=== PATIENT | female | born 1975 | race Two or more races ===

== ENCOUNTER 2017-05-29 17:45 | Emergency (ER) | payer OTHER ==
[2017-05-29 17:56] VITALS: BP 112/69; PULSE 78; RESP 16; TEMP 97.5; O2SAT 97
--- NOTE | 2017-05-29 18:55 | EDPHY ---
HPI/HX/ROS/PE/MDM Narrative: CHIEF COMPLAINT: Dysuria, hematuria HPI: This patient is a [place]anian-speaking 41 year old female complaining of lower abdominal pain and dysuria. These symptoms began a few days ago. She has had urinary frequency and urgency. She has also noted hematuria. She endorses nausea but no vomiting. She denies history of UTI in the past. No fever, back pain or flank pain, diarrhea, or other associated symptoms. 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 REVIEW OF SYSTEMS: Aside from elements discussed in the HPI, a comprehensive 10-point review of systems was reviewed and is negative. PMH: Denies. SOCIAL HISTORY: [place]anian-speaking. Family member at bedside. Lives in [place]. PHYSICAL EXAM: General:Patient is alert, in no acute distress. ENT:Eyes are normal to inspection. ENT inspection normal. Neck: Normal inspection. Full range of motion. Respiratory:No respiratory distress. Breath sounds normal bilaterally. Cardiovascular: Regular rate and rhythm. Strong peripheral pulses. Normal cap refill. Abdomen: Suprapubic tenderness. There are no peritoneal signs. There are normal bowel sounds. Back: Normal to inspection. No tenderness to palpation. No CVA tenderness. Skin: Normal color. No rash. Warm and dry. Extremities: Normal appearance. Full range of motion. Neuro: Oriented x3. Normal motor function. Normal sensory function. ED Course: 41 y/o female presents with dysuria, hematuria, suprapubic pain. Symptoms consistent with UTI. No flank pain. The patient is afebrile and non-toxic appearing. Plan for UA. UA positive for UTI, hematuria. Plan to d/c home in good condition with Macrobid and Pyridium. The first doses of these will be administered here in the emergency department. Follow up and return precautions discussed. The patient is comfortable with this plan. - Data Points Laboratory Results: 05/29/17 05/29/17 17:58 17:58 Urine Color RED Urine Appearance MODERATELY TURBID Urine pH 6.0 (5.0-7.5) Ur Specific [place] 1.013 (1.002-1.030) Urine Protein 2+ H (NEGATIVE) Urine Ketones NEGATIVE (NEGATIVE) Urine Blood 3+ H (NEGATIVE) Urine Nitrate NEGATIVE (NEGATIVE) Urine Bilirubin NEGATIVE (NEGATIVE) Urine Urobilinogen NEGATIVE EU EU (0.2-1.0) Ur Leukocyte Esterase 2+ H (NEGATIVE) Urine RBC 50-182 /hpf H /hpf (0-3) Urine WBC 50-182 /hpf H /hpf (0-3) Ur Epithelial Cells TRACE /lpf /lpf (NONE-1+) Urine Mucus TRACE /lpf /lpf (NONE-1+) Urine Glucose NEGATIVE (NEGATIVE) Urine Test NEGATIVE Medications Given: Discontinued Medications Nitrofurantoin Macrocrystals (Macrobid) 100 mg PO EDNOW ONE PRN Reason: Protocol Stop: 05/29/17 19:05 Last Admin: 05/29/17 19:20 Dose: 100 mg Phenazopyridine HCl (Pyridium) 200 mg PO EDNOW ONE Stop: 05/29/17 19:05 Last Admin: 05/29/17 19:20 Dose: 200 mg General Time Seen by Provider: 05/29/17 18:54 Initial Vital Signs: Initial Vital Signs Temperature (C) 36.4 C 05/29/17 17:53 Heart Rate 78 05/29/17 17:53 Respiratory Rate 16 05/29/17 17:53 Blood Pressure 112/69 05/29/17 17:53 O2 Sat (%) 97 05/29/17 17:53 O2 Delivery Mode Room Air Allergies/Adverse Reactions: No Known Allergies Allergy (Verified 05/29/17 17:51) Home Medications: Medication Instructions Recorded Control Pill 1 tab PO DAILY 03/19/15 Nitrofurantoin Monohyd/M-Cryst 100 mg PO BID #7 capsule 05/29/17 [Macrobid 100 mg Capsule] Phenazopyridine HCl [Pyridium] 200 mg PO TID #6 tab 05/29/17 Departure - Departure Disposition: Home, Routine, Self-Care Clinical Impression: Urinary tract infection Qualifiers: Urinary tract infection type: acute cystitis Hematuria presence: with hematuria Qualified Code(s): N30.01 - Acute cystitis with hematuria Condition: Good Instructions: Urinary Tract Infection in Women (ED) Additional Instructions: Follow-up with your primary doctor within 2-3 days. Take Macrobid as prescribed. Take Pyridium as prescribed. Your urine may turn orange, but this is normal with this medication. Return to the Emergency Department for fever, worsening pain, flank pain or failure to improve within 72 hours. It is possible that the bacteria causing your infection is resistant to the antibiotic we've placed you on. We have sent a urine for culture, if this comes back with a resistant bacteria, we will call you at the number you provided to us. - Joel meri eladio de seguimiento con arreguin doctor en 2-3 lloyd. - [place] el Macrobid a zane se le brand recetado. - [place] Pyridium a zane se le brand recetado. Arreguin orina puede tornar a color naranja , jocelyn eso es normal con michelle medicamento. - Regrese a la olga de emergnecia si tiene fiebre, empeora el dolor, si tiene dolor en el costado o si no mejora en las proximas 72 horas. - Es posible que la bacteria que le causa esta infeccion es resistente al antibiotico que le hemos recetado. Hemos enviado la muestra de orina al laboratorio, si los resultados muestran resistencia a la bacteria, le llamaremos al tricia que nos facilito. Referrals: Slava Stockton MD [Medical Doctor] - As per Instructions Prescriptions: Nitrofurantoin Monohyd/M-Cryst [Macrobid 100 mg Capsule] 100 mg PO BID #7 capsule Phenazopyridine HCl [Pyridium] 200 mg PO TID #6 tab Print Language: [place] Report Scribed for: Kwame Roman Report Scribed by: Ruthann Dominguez Date of Report: 05/29/17 Time of Report: 18:55 Physician Review and Approval Statement: Portions of this note were transcribed by an ED scribe. I personally performed the history, physical exam, and medical decision making; and confirm the accuracy of the information in the transcribed note.
[2017-05-29] MEDS ORDERED: NITROFURANTOIN MACROBID 100 MG CAP PO ONE (19:04)
[2017-05-29] MEDS ORDERED: PHENAZOPYRIDINE HCL 200 MG TAB PO ONE (19:04)
== END 2017-05-29 19:25 | disposition home or self-care (01) ==
DX: N30.01 Acute cystitis with hematuria (principal)